=== PATIENT | female | born 1950 | race Caucasian/White ===

== ENCOUNTER → 2019-10-16 13:09 | Outpatient (BNVA) | payer MEDICARE, BC, SELFPAY | PROVIDERS: Visit Provider Nurse Practitioner Family | DX: M25.561 Pain in right knee (principal); M25.562 Pain in left knee | CPT/HCPCS: 73562 ==

== ENCOUNTER → 2019-11-20 17:51 | Outpatient (BNVA) | payer MEDICARE, BC, SELFPAY | PROVIDERS: Visit Provider Family Medicine | DX: R09.89 Other specified symptoms and signs involving the circulatory and respiratory systems (principal); B34.9 Viral infection, unspecified | CPT/HCPCS: 87804 ==

== ENCOUNTER 2021-01-13 13:11 | Outpatient (CLI) | payer MEDICARE, BC, SELFPAY ==
--- NOTE | 2021-01-13 13:26 | XR_ITS ---
WS: [id number] LUMBAR SPINE: 5 VIEWS TECHNIQUE: AP, lateral, and L5-S1 spot. Lateral views in neutral, flexion and extension. HISTORY: M54.5 - Low back pain COMPARISON: 07/13/2009 Moderate LEFT curvature lumbar spine with asymmetric disc space narrowing at L3-4 and L4-5. The scoli osis has moderately increased since 2008. Posterior alignment is normal. With flexion and extension t here is no instability. No fractures. Pedicles are all identified. Mild facet joint arthritis at L5-S1. Mild narrowing of the SI joints bilaterally similar to the prior study. XR/XR lumbar spine min 4V [id number] IMPRESSION: 1. Moderate progression in LEFT curvature scoliosis and asymmetric disc space narrowing. 2. No acute fractures. 3. No instability.
== END 2021-01-13 13:12 | disposition home or self-care (01) ==
PROVIDERS: Visit Provider Family Medicine
DX: M54.5 Low back pain (principal)
CPT/HCPCS: 72110

== ENCOUNTER 2021-01-29 16:11 | Outpatient (CLI) | payer MEDICARE, BC, SELFPAY ==
--- NOTE | 2021-01-29 16:45 | MR_ITS ---
WS: [id number] MRI LUMBAR SPINE NONCONTRAST TECHNIQUE: Sagittal T1, T2 and STIR imaging. Axial T1 and T2 imaging. CLINICAL INFORMATION: M54.5 - Low back pain COMPARISON: None. FINDINGS: Mild lumbar curve. No acute compression. Multilevel degenerative disc disease with disc space narrowi ng worse at L3-L5. No acute compression fractures. L1-L2: Mild annular bulging with a shallow right pericentral protrusion. Spinal canal and foramen are patent. Mild facet arthropathy. L2-L3: Mild annular bulging. Mild facet arthropathy. Spinal canal and foramen are patent. L3-L4: Slight retrolisthesis. Mild disc bulging with slight impingement traversing right L4 nerve ayo t. Mild right foraminal narrowing. Left foramen is patent. Moderate facet arthropathy. L4-L5: Mild disc bulging with osteophytic ridging. Slight impingement on the traversing left L5 nerve root. Mild left and no significant right foraminal narrowing. Mild/moderate facet arthropathy. L5-S1: Mild disc bulging with tiny shallow central protrusion. Slight effacement of ventral thecal sa c. Mild left and no significant right foraminal narrowing. Mild facet arthropathy. Visualized pelvic bony structures: Normal. Paravertebral soft tissues: Normal. MR/MR lumbar spine wo con* [id number] IMPRESSION: 1. Mild lumbar curve. No acute compression. No high-grade central canal stenos is. 2. Right subarticular disc protrusion L3-4 impinges the traversing right L4 ne rve root in the subarticular recess. This is progressed from previous. Mild rig ht L3-4 foraminal narrowing. 3. Disc bulging L4-5 with impingement traversing left L5 nerve root in the sub articular recess progressed from previous. 4. Mild left L5-S1 bony foraminal narrowing. 5. Shallow central protrusion L5-S1 with slight contact of the traversing S1 n erve roots. 6. Mild to moderate facet arthropathy L3-L5.
== END 2021-01-29 16:12 | disposition home or self-care (01) ==
LOC: RADSHAW 16:13
PROVIDERS: PCP Family Medicine; Visit Provider Family Medicine
DX: M54.5 Low back pain (principal); M51.36 Other intervertebral disc degeneration, lumbar region; M47.896 Other spondylosis, lumbar region; M47.816 Spondylosis without myelopathy or radiculopathy, lumbar region
CPT/HCPCS: 72148

== ENCOUNTER → 2021-02-22 10:10 | Outpatient (BNVA) | payer MEDICARE, BC, SELFPAY | PROVIDERS: PCP Family Medicine; Referring Provider Orthopaedic Surgery; Visit Provider Anesthesiology Pain Medicine | DX: G89.29 Other chronic pain (principal); M54.9 Dorsalgia, unspecified; M47.816 Spondylosis without myelopathy or radiculopathy, lumbar region; Z79.891 Long term (current) use of opiate analgesic | CPT/HCPCS: 99205 ==

== ENCOUNTER → 2021-03-10 14:03 | Outpatient (BNVA) | payer MEDICARE, BC, SELFPAY | PROVIDERS: PCP Family Medicine; Visit Provider Anesthesiology Pain Medicine | DX: G89.29 Other chronic pain (principal); M47.816 Spondylosis without myelopathy or radiculopathy, lumbar region; M54.9 Dorsalgia, unspecified | CPT/HCPCS: 64493; 64494; 64495; J3490 ==

== ENCOUNTER → 2021-03-24 11:00 | Outpatient (BNVA) | payer MEDICARE, BC, SELFPAY | PROVIDERS: PCP Family Medicine; Visit Provider Anesthesiology Pain Medicine | DX: G89.29 Other chronic pain (principal); M47.816 Spondylosis without myelopathy or radiculopathy, lumbar region; M79.605 Pain in left leg; M79.604 Pain in right leg | CPT/HCPCS: 99214 ==

== ENCOUNTER → 2021-04-07 13:19 | Outpatient (BNVA) | payer MEDICARE, BC, SELFPAY | PROVIDERS: PCP Family Medicine; Visit Provider Anesthesiology Pain Medicine | DX: G89.29 Other chronic pain (principal); M47.816 Spondylosis without myelopathy or radiculopathy, lumbar region | CPT/HCPCS: 64635; 64636 ==

== ENCOUNTER → 2021-04-21 14:11 | Outpatient (BNVA) | payer MEDICARE, BC, SELFPAY | PROVIDERS: PCP Family Medicine; Visit Provider Anesthesiology Pain Medicine | DX: G89.29 Other chronic pain (principal); M47.816 Spondylosis without myelopathy or radiculopathy, lumbar region; M79.604 Pain in right leg; M79.605 Pain in left leg | CPT/HCPCS: 99214 ==

== ENCOUNTER → 2021-05-04 12:44 | Outpatient (BNVA) | payer MEDICARE, BC, SELFPAY | PROVIDERS: PCP Family Medicine; Visit Provider Anesthesiology Pain Medicine | DX: G89.29 Other chronic pain (principal); M47.816 Spondylosis without myelopathy or radiculopathy, lumbar region | CPT/HCPCS: 99213 ==

== ENCOUNTER → 2021-06-03 12:45 | Outpatient (BNVA) | payer MEDICARE, BC, SELFPAY | PROVIDERS: PCP Family Medicine; Visit Provider Anesthesiology Pain Medicine | DX: G89.29 Other chronic pain (principal); M47.816 Spondylosis without myelopathy or radiculopathy, lumbar region; M79.601 Pain in right arm; M79.602 Pain in left arm | CPT/HCPCS: 99213 ==

== ENCOUNTER → 2021-06-30 09:26 | Outpatient (BNVA) | payer MEDICARE, BC, SELFPAY | PROVIDERS: PCP Family Medicine; Visit Provider Anesthesiology Pain Medicine | DX: G89.29 Other chronic pain (principal); M47.816 Spondylosis without myelopathy or radiculopathy, lumbar region; M79.604 Pain in right leg; M79.605 Pain in left leg | CPT/HCPCS: 99213 ==

== ENCOUNTER → 2021-08-31 13:51 | Outpatient (BNVA) | payer MEDICARE, BC, SELFPAY | PROVIDERS: PCP Family Medicine; Visit Provider Family Medicine | DX: M25.562 Pain in left knee (principal); M25.561 Pain in right knee | CPT/HCPCS: 73562 ==

== ENCOUNTER → 2021-09-22 10:56 | Outpatient (BNVA) | payer MEDICARE, BC, SELFPAY | PROVIDERS: PCP Family Medicine; Visit Provider Nurse Practitioner Family | DX: Z20.822 Contact with and (suspected) exposure to COVID-19 (principal); R68.89 Other general symptoms and signs | CPT/HCPCS: 87400; 87635 ==

== ENCOUNTER → 2021-10-26 09:19 | Outpatient (BNVA) | payer MEDICARE, BC, SELFPAY | PROVIDERS: PCP Family Medicine; Visit Provider Anesthesiology Pain Medicine | DX: G89.29 Other chronic pain (principal); M47.816 Spondylosis without myelopathy or radiculopathy, lumbar region; M79.604 Pain in right leg; M79.605 Pain in left leg | CPT/HCPCS: 99214 ==

== ENCOUNTER → 2022-01-20 09:03 | Outpatient (BNVA) | payer MEDICARE, BC, SELFPAY | PROVIDERS: PCP Family Medicine; Visit Provider Anesthesiology Pain Medicine | DX: G89.29 Other chronic pain (principal); M47.816 Spondylosis without myelopathy or radiculopathy, lumbar region; M79.604 Pain in right leg; M79.605 Pain in left leg | CPT/HCPCS: 99213 ==

== ENCOUNTER → 2022-04-28 08:50 | Outpatient (BNVA) | payer MEDICARE, BC, SELFPAY | PROVIDERS: PCP Family Medicine; Visit Provider Anesthesiology Pain Medicine | DX: M79.604 Pain in right leg (principal); M79.605 Pain in left leg; G89.29 Other chronic pain; M47.816 Spondylosis without myelopathy or radiculopathy, lumbar region | CPT/HCPCS: 99214 ==

== ENCOUNTER 2022-06-22 13:20 | Outpatient (CLI) | payer MEDICARE, BC, SELFPAY ==
--- NOTE | 2022-06-22 13:30 | XR_ITS ---
WS: [id number] DEXA (DUAL ENERGY X-RAY ABSORPTIOMETRY) Bone mineral density was performed using a [employer] machine. HISTORY: POST MENOPAUSAL COMPARISON: None available. Lumbar spine BMD (L1-L4): 1.440 g/cm2 T score: 2.2 Z score: 3.7 Total hip BMD: Left: 0.963 g/cm2. T score: -0.4 Z score: 1.1 Right: 0.908 g/cm2. T score: -0.8 Z score: 0.6 10 year probability of a major osteoporotic fracture is 29.3%. Marked LEFT curvature lumbar spine with bony sclerosis along the concave portion of the curve. XR/XR DEXA axial skeleton* [id number] IMPRESSION: NORMAL BONE MINERAL DENSITY based upon the WHO classification for females.
== END 2022-06-22 13:21 | disposition home or self-care (01) ==
LOC: RAD 13:20
PROVIDERS: PCP Family Medicine; Visit Provider Obstetrics & Gynecology
DX: Z78.0 Asymptomatic menopausal state (principal)
CPT/HCPCS: 77080

== ENCOUNTER → 2022-08-18 08:49 | Outpatient (BNVA) | payer MEDICARE, BC, SELFPAY | PROVIDERS: PCP Family Medicine; Visit Provider Anesthesiology Pain Medicine | DX: G89.29 Other chronic pain (principal); M47.816 Spondylosis without myelopathy or radiculopathy, lumbar region; M79.604 Pain in right leg; M79.605 Pain in left leg | CPT/HCPCS: 99213 ==

== ENCOUNTER → 2022-12-13 09:04 | Outpatient (BNVA) | payer MEDICARE, BC, SELFPAY | PROVIDERS: PCP Family Medicine; Visit Provider Anesthesiology Pain Medicine | DX: G89.29 Other chronic pain (principal); M47.816 Spondylosis without myelopathy or radiculopathy, lumbar region; M79.604 Pain in right leg; M79.605 Pain in left leg | CPT/HCPCS: 99213 ==

== ENCOUNTER → 2023-03-02 16:15 | Outpatient (BNVA) | payer MEDICARE, BC, SELFPAY | PROVIDERS: PCP Family Medicine; Visit Provider Family Medicine | DX: M25.552 Pain in left hip (principal) | CPT/HCPCS: 73502 ==

== ENCOUNTER → 2023-04-11 08:56 | Outpatient (BNVA) | payer MEDICARE, BC, SELFPAY | PROVIDERS: PCP Family Medicine; Visit Provider Anesthesiology Pain Medicine | DX: G89.29 Other chronic pain; M47.816 Spondylosis without myelopathy or radiculopathy, lumbar region; M25.552 Pain in left hip | CPT/HCPCS: 99213 ==

== ENCOUNTER → 2023-04-24 13:53 | Outpatient (BNVA) | payer MEDICARE, BC, SELFPAY | PROVIDERS: PCP Family Medicine; Visit Provider Anesthesiology Pain Medicine | DX: M16.11 Unilateral primary osteoarthritis, right hip (principal); M47.816 Spondylosis without myelopathy or radiculopathy, lumbar region | CPT/HCPCS: 20610; 77002; J1030; J3490 ==

== ENCOUNTER → 2023-05-09 08:46 | Outpatient (BNVA) | payer MEDICARE, BC, SELFPAY | PROVIDERS: PCP Family Medicine; Visit Provider Anesthesiology Pain Medicine | DX: M47.816 Spondylosis without myelopathy or radiculopathy, lumbar region; M25.552 Pain in left hip; M25.551 Pain in right hip | CPT/HCPCS: 99214 ==

== ENCOUNTER 2023-05-11 11:18 | Emergency (ER) | payer MEDICARE, BC, SELFPAY ==
[2023-05-11 11:21] VITALS: BMI 20.5
[2023-05-11 11:33] VITALS: BP 123/68; PULSE 81; RESP 16; TEMP 36.6; O2SAT 95
--- NOTE | 2023-05-11 11:33 | XR_ITS ---
WS: [id number] Exam: XR cervical spine 3V* [id number] Date/Time of Exam: 05/11/2023 11:33 AM Reason For Exam: fall pain No acute fracture or dislocation. There is straightening and reversal of the normal cervical lordosis . There is dextroscoliosis. There is degenerative disc change and spondylosis from C5-C7. Facet DJD a t all levels. Normal paraspinal soft tissues. The odontoid is intact. Upper thoracic scoliosis and ap ical pleural thickening. IMPRESSION: 1. No acute fracture or malalignment. 2. Degenerative changes, straightening, mild dextroscoliosis.
--- NOTE | 2023-05-11 11:33 | XR_ITS ---
WS: [id number] Exam: XR thoracic spine 2V [id number] Date/Time of Exam: 05/11/2023 11:33 AM Reason For Exam: fall pain No fracture or dislocation. Moderate dextroscoliosis. Mild spondylosis. Degenerative disc changes at all levels. Normal paraspinal soft tissues. IMPRESSION: 1. Degenerative changes and dextroscoliosis. No fracture or malalignment.
--- NOTE | 2023-05-11 11:34 | ED_ITS ---
HPI - Back Pain/Injury General: Chief Complaint: Back Pain/Injury Stated Complaint: neck and back pain post fall Time Seen by Provider: 05/11/23 11:28 History of Present Illness: Presents to the ER with complaints of neck and upper back pain. Patient took a fall this morning and fell backwards and now has complaints of neck and upper back pain. This fall was just prior to arrival. Patient did not have pain in these areas before. Patient stated her pain initially radiated down her arms but now is just in her neck and upper back region. Movement does exacerbate these. Staying very still does help these. Did not take any medicine prior to arrival. This is not work-related. Review of Systems General: Reports: 10 or more systems reviewed and unremarkable except in HPI and below PFSH ED PFSH: Social History Smoking and tobacco status: never smoked Second hand smoke exposure: No Alcohol intake: never Substance/Drug Use: never Lives independently: Yes Household members: spouse Housing: House Marital status: service: No Current occupational status: retired Current gender identity: Female Physical Exam Const: COMMON NORMALS: no acute distress, average body habitus, patient oriented x3, no limitations, healthy appearing, alert and well nourished HENMT: COMMON NORMALS: normocephalic, atraumatic, hearing grossly normal bilaterally, external ears normal, Normal external nose present and moist oral mucous membranes HEAD & SCALP: normocephalic and atraumatic NOSE: Normal external nose present EXTERNAL EAR: Yes external ears normal Eye: COMMON NORMALS: Equal, round and reactive pupils present, EOMs intact bilaterally, conjunctivae normal and no scleral icterus CONJUNCTIVA: Yes conjunctivae normal PUPIL: Yes Equal, round and reactive pupils present Neck/C-Spine: COMMON NORMALS: full ROM, no lymphadenopathy, supple, no meningeal signs and no JVD OTHER: Tender to paraspinal muscles bilaterally. No vertebral tenderness. Chest: COMMONS NORMALS: normal inspection of the chest and normal palpation of entire chest wall Resp: COMMON NORMALS: normal respiratory effort, No retractions, No use of accessory muscles and clear to auscultation bilaterally AUSCULTATION: clear to auscultation bilaterally Cardio: COMMON NORMALS: no JVD, regular rate, regular rhythm, S1 normal heart sound present, S2 normal heart sound present, No gallops present (Cardio), No clicks present (Cardio) and No murmurs present (Cardio) RATE: regular rate RHYTHM: regular rhythm HEART SOUNDS: S1 normal heart sound present and S2 normal heart sound present GI: COMMON NORMALS: Normal to inspection, nondistended, normoactive bowel sounds present, Soft to palpation, non-tender, No hepatosplenomegaly present and no masses PALPATION: Yes Soft to palpation and Yes No hepatosplenomegaly present Back/Pelvis: OTHER: Upper thoracic area tender to palpate paraspinal musculature. No vertebral tenderness. Neuro: COMMON NORMALS: patient oriented x3 SENSORIUM/ORIENTATION: Yes alert MENINGEAL SIGNS: Yes no meningeal signs Course Vital Signs: Vital signs: Vital Signs Temperature 97.9 F 05/11/23 11:33 Pulse Rate 81 05/11/23 11:33 Respiratory Rate 16 05/11/23 11:33 Blood Pressure 123/68 05/11/23 11:33 Pulse Oximetry 95 05/11/23 11:33 MDM - Back Pain/Injury Medical Decision Making Patient fell prior to arrival and presents with neck pain and upper back pain. Both these are mainly paraspinal musculature in nature and not vertebral tenderness. X-rays was obtained for both the cervical and thoracic spine. These x-rays were negative for acute fracture however they did show significant arthritis. She should continue to take her Celebrex that she has at home. As well as her tizanidine. Patient should follow-up with her PCP in approximately 7 days or sooner as needed. Differential Diagnosis Likely thoracic back pain; Unlikely lumbar radiculopathy, sciatica, strain of lumbar region, renal colic, pyelonephritis, AAA or discitis Medical Records I reviewed the patient's medical records. Labs I reviewed the patient's lab results. Discharge Plan Discharge Patient Disposition: Home Clinical Impression: Neck and shoulder pain Thoracic back pain Qualifiers: Chronicity: acute Back pain laterality: bilateral Qualified Code(s): M54.6 - Pain in thoracic spine Fall Qualifiers: Encounter type: initial encounter Qualified Code(s): W19.XXXA - Unspecified fall, initial encounter Condition: Stable Prescriptions: New Paxlovid 300 mg (150 mg x 2)-100 mg tablets,dose pack See Rx Instructions .ROUTE .COMPLEX Qty: 30 0RF Rx Instructions: take TWO 150 mg tablets of nirmatrelvir with ONE 100 mg tablet of ritonavir twice daily for 5 days No Action albuterol sulfate [ProAir HFA] 90 mcg/actuation HFA aerosol inhaler 2 puff inhalation QID PRN (Reason: shortness of breath or wheezing) Qty: 8.5 0RF nystatin 100,000 unit/mL suspension 2.5 ml PO TID Qty: 160 0RF Rx Instructions: swish and swallow Toviaz 8 mg tablet extended release 24 hr 8 mg PO DAILY estrogens-methyltestosterone 1.25-2.5 mg tablet 1 tab PO DAILY methylprednisolone [Medrol (Kurt)] 4 mg tablets,dose pack See Rx Instructions PO PER PKG DIR Qty: 21 0RF Rx Instructions: PO PER PKG DIR propranolol 40 mg tablet 20 mg PO BID Qty: 90 6RF celecoxib [Celebrex] 200 mg capsule 200 mg PO BID Qty: 60 1RF gabapentin 300 mg capsule 300 mg PO TID Qty: 90 3RF tizanidine 2 mg tablet 2 mg PO BID PRN (Reason: muscle spasticity) Qty: 60 3RF Discharge Orders: Discharge ED (Routine); Ordered 05/11/23 Ordered By: Bruce Valenzuela Referrals: Deb Muñiz MD [Primary Care Provider] - 1 week Patient Instructions: Thoracic Pain (ED), Acute Neck Pain (ED) Coding Level of Care Code ED [employer] Ac[employer] Program Manager for Tereza Mathew
== END 2023-05-11 13:22 | disposition home or self-care (01) ==
PROVIDERS: Emergency Provider Emergency Medicine; PCP Family Medicine
DX: M54.6 Pain in thoracic spine (principal); M54.2 Cervicalgia; M25.519 Pain in unspecified shoulder; W19.XXXA Unspecified fall, initial encounter
CPT/HCPCS: 72040; 72070; 99283

== ENCOUNTER → 2023-08-07 10:24 | Outpatient (BNVA) | payer MEDICARE, BC, SELFPAY | PROVIDERS: PCP Family Medicine; Visit Provider Anesthesiology Pain Medicine | DX: G89.29 Other chronic pain; M47.816 Spondylosis without myelopathy or radiculopathy, lumbar region; M51.26 Other intervertebral disc displacement, lumbar region; M48.061 Spinal stenosis, lumbar region without neurogenic claudication | CPT/HCPCS: 99214 ==

== ENCOUNTER → 2023-08-22 10:52 | Outpatient (BNVA) | payer MEDICARE, BC, SELFPAY | PROVIDERS: PCP Family Medicine; Visit Provider Anesthesiology Pain Medicine | DX: M79.18 Myalgia, other site (principal); M54.2 Cervicalgia; G89.29 Other chronic pain; M47.816 Spondylosis without myelopathy or radiculopathy, lumbar region | CPT/HCPCS: 20553; 99214; J1030; J3490 ==

== ENCOUNTER → 2023-11-02 10:25 | Outpatient (BNVA) | payer MEDICARE, BC, SELFPAY | PROVIDERS: PCP Family Medicine; Visit Provider Anesthesiology Pain Medicine | DX: G89.29 Other chronic pain; M47.816 Spondylosis without myelopathy or radiculopathy, lumbar region; M54.2 Cervicalgia | CPT/HCPCS: 99214 ==

== ENCOUNTER → 2023-12-12 09:54 | Outpatient (BNVA) | payer MEDICARE, BC, SELFPAY | PROVIDERS: PCP Family Medicine; Visit Provider Anesthesiology Pain Medicine | DX: M79.18 Myalgia, other site (principal); G89.29 Other chronic pain; M54.2 Cervicalgia; M47.816 Spondylosis without myelopathy or radiculopathy, lumbar region; M51.26 Other intervertebral disc displacement, lumbar region; M48.061 Spinal stenosis, lumbar region without neurogenic claudication | CPT/HCPCS: 20553; 99214 ==

== ENCOUNTER → 2024-01-09 14:10 | Outpatient (BNVA) | payer MEDICARE, BC, SELFPAY | PROVIDERS: PCP Family Medicine; Visit Provider Family Medicine | DX: R05.9 Cough, unspecified (principal); R50.9 Fever, unspecified | CPT/HCPCS: 87071; 87400; 87880 ==

== ENCOUNTER → 2024-02-13 08:57 | Outpatient (BNVA) | payer MEDICARE, BC, SELFPAY | PROVIDERS: PCP Family Medicine; Visit Provider Anesthesiology Pain Medicine | DX: M79.18 Myalgia, other site (principal); G89.29 Other chronic pain; M54.2 Cervicalgia; M47.816 Spondylosis without myelopathy or radiculopathy, lumbar region | CPT/HCPCS: 20553; 99214; J1010; J3490 ==

== ENCOUNTER → 2024-03-07 10:47 | Outpatient (BNVA) | payer MEDICARE, BC, SELFPAY | PROVIDERS: PCP Family Medicine; Visit Provider Family Medicine | DX: N39.0 Urinary tract infection, site not specified (principal) | CPT/HCPCS: 81003 ==

== ENCOUNTER 2024-03-14 21:24 | Observation (INO) | payer BC, MEDICARE, SELFPAY ==
[2024-03-14 21:28] VITALS: BP 184/109; PULSE 94; RESP 16; TEMP 36.6; O2SAT 98
[2024-03-14 21:32] VITALS: BP 188/87; PULSE 78; RESP 16; O2SAT 96
--- NOTE | 2024-03-14 21:39 | ED_ITS ---
HPI - Neuro Symptoms/Deficit 2 General: Chief Complaint: Neuro Symptoms/Deficit Stated Complaint: Dizziness,Left side Numbness Time Seen by Provider: 03/14/24 21:34 History of Present Illness: Patient presents to the ER with complaints of headache off and on since 3 AM this morning, numbness and tingling in her left fourth and fifth digit in the left side of her mouth upper and lower lips intermittently throughout the day. Patient also has had intermittent dizziness. Patient has taken several doses of Excedrin which has helped her headache and her numbness is decreased but she is not quite back to normal yet. Patient has had 2 or 3 episodes like this approximately 5 weeks ago but did not seek treatment.Patient has no history of CVA, TIA, CAD, Patient is on no anticoagulation., Patient by her PCP approximately week ago for UTI and started on Cipro and finished 5 days worth of Cipro and is still having UTI type symptoms. Review of Systems 2 General: Reports: 10 or more systems reviewed and unremarkable except in HPI and below PFSH ED 2 PFSH: Social History Smoking and tobacco/nicotine status: never used tobacco/nicotine Second hand smoke exposure: No Alcohol intake: never Substance/Drug Use: never Lives independently: Yes Household members: spouse Housing: House Marital status: service: No Current occupational status: retired Current gender identity: Female NIH stroke score 2 NIHSS: Level Of Consciousness - 1a: 0 Level Of Consciousness Questions - 1b: Both Correct Level Of Consciousness Commands - 1c: Both Correct Best Gaze - 2: Normal Visual Benitez - 3: No Visual Loss Facial Palsy - 4: N ormal Motor Arm Right - 5: No Drift Motor Arm Left - 5: No Drift Motor Leg Right - 6: No Drift Motor Leg Left - 6: No Drift Limb Ataxia - 7: A bsent Sensory - 8: Normal Best Language - 9: No Aphasia Dysarthia - 10: Normal Extinction And Inattention - 11: 0 Score: Total Score: 0 Physical Exam 2 Const: COMMON NORMALS: no acute distress, average body habitus, patient oriented x3, no limitations, healthy appearing, alert and well nourished HENMT: COMMON NORMALS: normocephalic, atraumatic, hearing grossly normal bilaterally, external ears normal, Normal external nose present and moist oral mucous membranes HEAD & SCALP: normocephalic and atraumatic NOSE: Normal external nose present EXTERNAL EAR: Yes external ears normal Eye: COMMON NORMALS: Equal, round and reactive pupils present, EOMs intact bilaterally, conjunctivae normal and no scleral icterus CONJUNCTIVA: Yes conjunctivae normal PUPIL: Yes Equal, round and reactive pupils present Neck/C-Spine: COMMON NORMALS: full ROM, no lymphadenopathy, supple, no meningeal signs, no JVD and Thyroid normal THYROID: Thyroid normal Chest: COMMONS NORMALS: normal inspection of the chest and normal palpation of entire chest wall Resp: COMMON NORMALS: normal respiratory effort, No retractions, No use of accessory muscles and clear to auscultation bilaterally AUSCULTATION: clear to auscultation bilaterally Cardio: COMMON NORMALS: no JVD, regular rate, regular rhythm, S1 normal heart sound present, S2 normal heart sound present, No gallops present (Cardio), No clicks present (Cardio), No murmurs present (Cardio) and No rub (Cardio) R ATE: regular rate RHYTHM: regular rhythm HEART SOUNDS: S1 normal heart sound present and S2 normal heart sound present GI: COMMON NORMALS: Normal to inspection, nondistended, normoactive bowel sounds present, Soft to palpation, non-tender, No hepatosplenomegaly present and no masses PALPATION: Yes Soft to palpation and Yes No hepatosplenomegaly present Neuro: COMMON NORMALS: patient oriented x3 SENSORIUM/ORIENTATION: Yes alert MENINGEAL SIGNS: Yes no meningeal signs Course 2 Vital Signs: Vital signs: Vital Signs Temperature 97.9 F 03/14/24 21:28 Pulse Rate 80 03/14/24 23:17 Respiratory Rate 16 03/14/24 23:17 Blood Pressure 158/90 03/14/24 23:17 Pulse Oximetry 98 03/14/24 23:17 Oxygen Delivery Me thod Room Air 03/14/24 23:17 MDM - Neuro Symptoms/Deficit Medical Decision Making Patient had lab work, chest x-ray, head CT, CT of the cervical spine, head neck CTA, serial troponins, urinalysis all of which did not show any acute cause of the patient's symptomatology. Patient's urine was possibly slightly contaminated with 5-10 epithelials however had 2+ blood 1+ ketones and 1+ bacteria, is thought patient may be having TIA/paresthesias and orthostatics. Dr. De Luna was consulted who agreed to place patient in the hospital for further evaluation and treatment. Medical Records I reviewed the patient's medical records. Lab Data I reviewed the patient's lab results. 03/14/24 22:14 03/14/24 22:14 Radiology Impressions Chest X-Ray 03/14/24 21:40 IMPRESSION: No acute cardiopulmonary abnormality. Head CT 03/14/24 21:40 IMPRESSION: No evidence of acute intracranial hemorrhage, mass effect, or edema. Cervical Spine CT 03/15/24 00:47 IMPRESSION: Advanced degenerative disc disease at C5-C6 and to a lesser degree at C6-C7. No spinal canal or neural foraminal stenosis appreciated, but there is limited CT sensitivity for soft disc pathology. Consideration could be given to MR for further investigation. Head/Neck CTA 03/15/24 00:47 IMPRESSION: No evidence of acute large vessel occlusion, vascular malformation, aneurysm, or significant intracranial atherosclerosis. Posteroinferior cerebellar arteries appear normal bilaterally. Normal symmetric internal auditory canals. IMPRESSION: 1. There is no visible plaque at either carotid bifurcation. Widely patent carotid and vertebral arteries in the neck. 2. Right TMJ osteoarthritis. REFERENCES: NASCET CRITERIA. The degree of stenosis in the cervical segment of the internal carotid artery is based on NASCET criteria. Normal is no stenosis. Mild is less than 50% stenosis. Moderate is 50-69% stenosis. Severe is 70% to 99% stenosis. Total occlusion is no detectable patent lumen. Laboratory Results WBC 6.88 10^3/uL (3.29-11.43) 03/14/24 22:14 RBC 4.68 10^6/uL (3.85-5.65) 03/14/24 22:14 Hgb 14.40 g/dL (11.27-16.99) 03/14/24 22:14 Hct 43.6 % (36-47) 03/14/24 22:14 MCV 93.2 fl (85-98) 03/14/24 22:14 MCH 30.8 pg (27-33) 03/14/24 22:14 MCHC 33.0 g/dL (30-55) 03/14/24 22:14 RDW 13.2 % (12.1-15.1) 03/14/24 22:14 Plt Count 237 10^3/cmm (157-399) 03/14/24 22:14 MPV 10.9 fL (7.4-10.4) H 03/14/24 22:14 Neut % (Auto) 62.1 % 03/14/24 22:14 Lymph % (Auto) 26.3 % 03/14/24 22:14 [place] % (Auto) 9.3 % 03/14/24 22:14 Eos % (Auto) 1.6 % 03/14/24 22:14 Baso % (Auto) 0.6 % 03/14/24 22:14 Neut # (Auto) 4.27 10^3/uL (1.8-7.7) 03/14/24 22:14 Lymph # (Auto) 1.8 10^3/uL (0.8-4.8) 03/14/24 22:14 [place] # (Auto) 0.6 10^3/uL (0.2-0.9) 03/14/24 22:14 Eos # (Auto) 0.1 10^3/uL (0.0-0.8) 03/14/24 22:14 Baso # (Auto) 0.0 10^3/uL (0.0-0.1) 03/14/24 22:14 Nucleated RBC % (auto) 0 % 03/14/24 22:14 Nucleated RBCs # 0.0 /100WBC 03/14/24 22:14 PT 14.20 SECONDS (12.1-14.9) 03/14/24 22:14 INR 1.06 (0.8-1.2) 03/14/24 22:14 Sodium 136 mmol/L (136-145) 03/14/24 22:14 Potassium 3.4 mmol/L (3.5-5.1) L 03/14/24 22:14 Chloride 97 mmol/L (98-107) L 03/14/24 22:14 Carbon Dioxide 26 mmol/L (22-29) 03/14/24 22:14 Anion Gap 16.4 (5-19) 03/14/24 22:14 BUN 16 mg/dL (8-23) 03/14/24 22:14 Creatinine 1.0 mg/dL (0.5-0.9) H 03/14/24 22:14 GFR Calculation Not Reportable 03/14/24 22:14 Glucose 115 mg/dL (65-115) 03/14/24 22:14 Calculated Osmolality 284 mOsm/kg (285-295) L 03/14/24 22:14 Calcium 9.3 mg/dL (8.5-10.5) 03/14/24 22:14 Magnesium 1.9 mg/dL (1.7-2.3) 03/14/24 22:14 Total Bilirubin 0.5 mg/dL (0.15-1.2) 03/14/24 22:14 AST 18 U/L (0-32) 03/14/24 22:14 ALT 11 U/L (0-33) 03/14/24 22:14 Alkaline Phosphatase 58 U/L (35-105) 03/14/24 22:14 Troponin T Baseline 9 ng/L (0-10) 03/14/24 22:14 Troponin T 120 Minute 10.35 ng/L (0-10) H 03/15/24 00:19 Delta Troponin T 1.35 ABS# (0-10) 03/15/24 00:19 C-Reactive Protein 3.1 mg/L (0.0-4.9) 03/14/24 22:14 Total Protein 7.0 g/dL (6.6-8.7) 03/14/24 22:14 Albumin 3.9 g/dL (3.5-5.2) 03/14/24 22:14 Globulin 3.1 g/dL (1.3-4.6) 03/14/24 22:14 TSH 1.44 uIU/mL (0.27-4.20) 03/14/24 22:14 Urine Color Yellow (Yellow) 03/14/24 23:13 Urine Appearance Clear (CLEAR) 03/14/24 23:13 Urine pH 8 (5-7) H 03/14/24 23:13 Ur Specific [place] 1.015 (1.005-1.030) 03/14/24 23:13 Urine Protein Neg (Negative) 03/14/24 23:13 Urine Glucose (UA) Norm (Normal) 03/14/24 23:13 Urine Ketones 1+ (Negative) H 03/14/24 23:13 Urine Blood 2+ (Negative) H 03/14/24 23:13 Urine Nitrate Negative (Negative) 03/14/24 23:13 Urine Bilirubin Neg (Negative) 03/14/24 23:13 Urine Urobilinogen Neg mg/dL (Negative) 03/14/24 23:13 Ur Leukocyte Esterase Negative (Negative) 03/14/24 23:13 Urine RBC 5-10 /hpf (0-2) H 03/14/24 23:13 Urine WBC 0-4 /hpf (0-5) H 03/14/24 23:13 Ur Squamous Epith Cells 5-10 /hpf (0-5) H 03/14/24 23:13 Amorphous Sediment 1+ /hpf 03/14/24 23:13 Urine Bacteria 1+ /hpf (NONE) H 03/14/24 23:13 Urine Mucus Trace /hpf 03/14/24 23:13 All radiology interpretation(s) finalized by discharge Discharge Plan Discharge Patient Disposition: Placed in Observation Clinical Impression: Numbness and tingling, Brain TIA, Dizziness Coding Level of Care Code ED Plastic Molding Operator for Tereza Mathew
--- NOTE | 2024-03-14 21:40 | CTR_ITS ---
PROCEDURE INFORMATION: Exam: CT Head Without Contrast Exam date and time: 03/14/2024 9:52 PM Age: 73 years old Clinical indication: Pain; Dizziness and weakness, extremity; Headache; Patient HX: C/O [place] and dizziness with left upper extremity numbness. ; Additional info: Headache, left arm numbness, lips numb off and on TECHNIQUE: Imaging protocol: Computed tomography of the head without contrast. Radiation optimization: All CT scans at this facility use at least one of these dose optimization techniques: automated exposure control; mA and/or kV adjustment per patient size (includes targeted exams where dose is matched to clinical indication); or iterative reconstruction. COMPARISON: CR XR cervical spine 3V* [id number] 05/11/2023 11:49 AM RADIATION DOSE METRICS: Total DLP (mGy-cm): 1059.7 FINDINGS: Brain: No hemorrhage. Unremarkable white matter. No mass effect. Preserved lee-white interfaces. Cerebral ventricles: No ventriculomegaly. Paranasal sinuses: Visualized sinuses are unremarkable. No fluid levels. Mastoid air cells: Visualized mastoid air cells are well aerated. Bones: Unremarkable. No acute fracture. Soft tissues: Unremarkable. CT/CT head wo con* [id number] IMPRESSION: No evidence of acute intracranial hemorrhage, mass effect, or edema.
--- NOTE | 2024-03-14 21:40 | XRR_ITS ---
PROCEDURE INFORMATION: Exam: XR Chest Exam date and time: 03/14/2024 9:46 PM Age: 73 years old Clinical indication: Other: Dizzy, weakness; Additional info: Left arm weakness, HTN, TECHNIQUE: Imaging protocol: Radiologic exam of the chest. Views: 1 view. COMPARISON: CR XR cervical spine 3V* [id number] 05/11/2023 11:49 AM FINDINGS: Lungs: Clear, symmetrically inflated lungs. Pleural spaces: No pleural effusion. No pneumothorax. Heart/Mediastinum: Cardiac silhouette is normal in size for technique. Bones/joints: Prominent thoracic dextroscoliosis. XR/XR chest 1V portable [id number] IMPRESSION: No acute cardiopulmonary abnormality.
[2024-03-14 22:22] LABS: Basophils % 0.6 %; Eosinophils # 0.1 10^3/uL (0.0-0.8); Eosinophils % 1.6 %; Hematocrit 43.6 % (36-47); Lymphocytes # 1.8 10^3/uL (0.8-4.8); Lymphocytes % 26.3 %; Mean Corpuscular Hemoglobin 30.8 pg (27-33); Mean Corpuscular Volume 93.2 fl (85-98); Mean Platelet Volume 10.9 fL (7.4-10.4); Monocytes # 0.6 10^3/uL (0.2-0.9); Monocytes % 9.3 %; Neutrophils # 4.27 10^3/uL (1.8-7.7); Neutrophils % 62.1 %; Nucleated Red Blood Cells % 0 %; Platelet Count 237 10^3/cmm (157-399); Red Blood Count 4.68 10^6/uL (3.85-5.65); Red Cell Distribution Width 13.2 % (12.1-15.1); White Blood Count 6.88 10^3/uL (3.29-11.43)
[2024-03-14 22:40] LABS: Troponin(5th) Baseline 9 ng/L (0-10)
[2024-03-14 22:56] LABS: INR 1.06 (0.8-1.2)
[2024-03-14 23:17] VITALS: BP 158/90; PULSE 80; RESP 16; O2SAT 98
[2024-03-14 23:18] LABS: Alanine Aminotransferase 11 U/L (0-33); Albumin Level 3.9 g/dL (3.5-5.2); Alkaline Phosphatase 58 U/L (35-105); Anion Gap 16.4 (5-19); Aspartate Amino Transferase 18 U/L (0-32); Blood Urea Nitrogen 16 mg/dL (8-23); C Reactive Protein 3.1 mg/L (0.0-4.9); Calcium 9.3 mg/dL (8.5-10.5); Carbon Dioxide 26 mmol/L (22-29); Chloride 97 mmol/L (98-107); Creatinine Clr Calc Pharmacy 50.8481; Globulin 3.1 g/dL (1.3-4.6); Glucose 115 mg/dL (65-115); Magnesium 1.9 mg/dL (1.7-2.3); Osmolality Calculated 284 mOsm/kg (285-295); Potassium 3.4 mmol/L (3.5-5.1); Sodium 136 mmol/L (136-145); Thyroid Stimulating Hormone 1.44 uIU/mL (0.27-4.20); Total Bilirubin 0.5 mg/dL (0.15-1.2)
[2024-03-14 23:40] LABS: Add Urine Microscopic? YES; Amorphous Sediment Urine 1+ /hpf; Bacteria Urine 1+ /hpf; Bilirubin Urine Neg (Negative); Blood Urine 2+ (Negative); Glucose Urine UA Norm (Normal); Ketones Urine 1+ (Negative); Leukocyte Esterase Urine Negative (Negative); Mucus Urine TRACE /hpf; Nitrate Urine Negative (Negative); Protein Urine Neg (Negative); Specific Gravity, Urine 1.015 (1.005-1.030); Urine Appearance Clear (CLEAR); Urine Color Yellow (Yellow); Urobilinogen Urine Neg (Negative); WBC Urine 0-4 /hpf (0-5); pH Urine 8 (5-7)
[2024-03-15] VITALS (11 sets, daily range): BP systolic 137–179; BP diastolic 72–93; PULSE 74–96; RESP 12–16; TEMP 36.5–36.9; O2SAT 92–99
[2024-03-15 00:41] LABS: Troponin 5 2HR 10.35 ng/L (0-10); Troponin 5 2HR Delta 1.35 ABS# (0-10)
--- NOTE | 2024-03-15 00:47 | CTR_ITS ---
PROCEDURE INFORMATION: Exam: CT Cervical Spine Without Contrast Exam date and time: 03/15/2024 1:03 AM Age: 73 years old Clinical indication: Numbness; Prior surgery; Surgery date: 6+ months; Surgery type: Dental; Patient HX: Persistent dizziness with left upper extremity parasthesia. Tingling of 4th and 5th digits. ; Additional info: Parasthesia, HX oa spine TECHNIQUE: Imaging protocol: Computed tomography of the cervical spine without contrast. Radiation optimization: All CT scans at this facility use at least one of these dose optimization techniques: automated exposure control; mA and/or kV adjustment per patient size (includes targeted exams where dose is matched to clinical indication); or iterative reconstruction. COMPARISON: CR XR cervical spine 3V* [id number] 05/11/2023 11:49 AM RADIATION DOSE METRICS: Total DLP (mGy-cm): 285.87 FINDINGS: Bones: No evidence of acute cervical spine fracture. There is loss of the normal cervical lordosis with moderate cervical kyphosis. There is degenerative change throughout the cervical spine which is most severe C5-C6 and C6-C7. At C5-C6, there is severe discogenic sclerosis. No significant spinal canal or neural foraminal stenosis demonstrated in the cervical spine, but soft disc pathology can be underestimated on CT. Pharynx: Normal tonsillar pillars. Normal fossa of [place]. Larynx: Normal epiglottis. Symmetric vocal folds. Lungs: Lung apices were not included in the scan range. Thyroid: Homogeneous thyroid. Soft tissues: Unremarkable. CT/CT cervical spin wo con* [id number] IMPRESSION: Advanced degenerative disc disease at C5-C6 and to a lesser degree at C6-C7. No spinal canal or neural foraminal stenosis appreciated, but there is limited CT sensitivity for soft disc pathology. Consideration could be given to MR for further investigation.
--- NOTE | 2024-03-15 00:47 | CTR_ITS ---
PROCEDURE INFORMATION: Exam: CTA Head With Contrast, Arteriography Exam date and time: 03/15/2024 1:07 AM Age: 73 years old Clinical indication: Dizziness and giddiness and numbness; Prior surgery; Surgery date: 6+ months; Surgery type: Dental; Patient HX: Persistent dizziness with left upper extremity parasthesia. Tingling of 4th and 5th digits. ; Additional info: Headache numbnes tingling left mouth and left 4,5 fingers TECHNIQUE: Imaging protocol: Computed tomographic angiography of the head with contrast. Exam focused on the arteries. 3D rendering (Not supervised by radiologist): MIP and/or 3D reconstructed images were created by the technologist. Radiation optimization: All CT scans at this facility use at least one of these dose optimization techniques: automated exposure control; mA and/or kV adjustment per patient size (includes targeted exams where dose is matched to clinical indication); or iterative reconstruction. Contrast material: OMNI 350; Contrast volume: 100 ml; Contrast route: INTRAVENOUS (IV); COMPARISON: CT head wo con* [id number] 03/14/2024 9:52 PM RADIATION DOSE METRICS: Total DLP (mGy-cm): 415.42 FINDINGS: ANTERIOR CIRCULATION: Right internal carotid artery: Intracranial segment is patent with no significant stenosis. No aneurysm. Right middle cerebral artery: No occlusion or significant stenosis. No aneurysm. Right anterior cerebral artery: Hypoplastic right A1 segment. Left internal carotid artery: Intracranial segment is patent with no significant stenosis. No aneurysm. Left middle cerebral artery: No occlusion or significant stenosis. No aneurysm. Left anterior cerebral artery: No occlusion or significant stenosis. No aneurysm. POSTERIOR CIRCULATION: Right vertebral artery: No occlusion or significant stenosis. No aneurysm. Normal posteroinferior cerebellar artery. Left vertebral artery: No occlusion or significant stenosis. No aneurysm. Normal posteroinferior cerebellar artery. Basilar artery: No occlusion or significant stenosis. No aneurysm. Right posterior cerebral artery: No occlusion or significant stenosis. No aneurysm. Left posterior cerebral artery: No occlusion or significant stenosis. No aneurysm. Veins: Patent venous dural sinuses and tributaries. Brain: No definite mass, mass effect, or midline shift. Cerebral ventricles: No ventriculomegaly. Bones/joints: Normal symmetric internal auditory canals. No acute fracture. Soft tissues: Unremarkable. PROCEDURE INFORMATION: Exam: CTA Neck With Contrast Exam date and time: 03/15/2024 1:07 AM Age: 73 years old Clinical indication: Dizziness and giddiness and numbness; Prior surgery; Surgery date: 6+ months; Surgery type: Dental; Patient HX: Persistent dizziness with left upper extremity parasthesia. Tingling of 4th and 5th digits. ; Additional info: Headache numbnes tingling left mouth and left 4,5 fingers TECHNIQUE: Imaging protocol: Computed tomographic angiography of the neck with contrast. Exam focused on the cervical segments of the vasculature. 3D rendering (Not supervised by radiologist): MIP and/or 3D reconstructed images were created by the technologist. Radiation optimization: All CT scans at this facility use at least one of these dose optimization techniques: automated exposure control; mA and/or kV adjustment per patient size (includes targeted exams where dose is matched to clinical indication); or iterative reconstruction. Contrast material: OMNI 350; Contrast volume: 100 ml; Contrast route: INTRAVENOUS (IV); COMPARISON: CT cervical spin wo con* [id number] 03/15/2024 1:03 AM RADIATION DOSE METRICS: Total DLP (mGy-cm): 415.42 FINDINGS: Right common carotid artery: No stenosis. No dissection or occlusion. Right internal carotid artery: No stenosis of the extracranial segment. No dissection or occlusion. Right external carotid artery: No occlusion or stenosis of the origin. Left common carotid artery: No stenosis. No dissection or occlusion. Left internal carotid artery: No stenosis of the extracranial segment. No dissection or occlusion. Left external carotid artery: No occlusion or stenosis of the origin. Right vertebral artery: No stenosis. No dissection or occlusion. Left vertebral artery: No stenosis. No dissection or occlusion. Thyroid: Homogeneous thyroid. Soft tissues: Normal. No significant soft tissue swelling. 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 There is diffuse degenerative disc disease throughout the cervical spine without spinal canal or neural foraminal stenosis. Lungs: Mild bronchiectasis at the lung apices. Clear lung parenchyma. CT/CT angio headneck* [id number] IMPRESSION: No evidence of acute large vessel occlusion, vascular malformation, aneurysm, or significant intracranial atherosclerosis. Posteroinferior cerebellar arteries appear normal bilaterally. Normal symmetric internal auditory canals. IMPRESSION: 1. There is no visible plaque at either carotid bifurcation. Widely patent carotid and vertebral arteries in the neck. 2. Right TMJ osteoarthritis. REFERENCES: NASCET CRITERIA. The degree of stenosis in the cervical segment of the internal carotid artery is based on NASCET criteria. Normal is no stenosis. Mild is less than 50% stenosis. Moderate is 50-69% stenosis. Severe is 70% to 99% stenosis. Total occlusion is no detectable patent lumen.
[2024-03-15] MEDS: iohexol 350 mg/mL 500 mL Btl (per mL) IV (01:16)
--- NOTE | 2024-03-15 01:47 | P.HP_ITS ---
Providers/Chief Complaint 2 Primary Care Provider: Deb Muñiz MD Chief Complaint: Dizziness,Left side Numbness History of Present Illness Rosey Saravia is a 73 year old female With past medical history of bladder prolapse, chronic back pain,, migraines, chronic headaches who presented to the hospital today for complaint of numbness and tingling in her left hand which later extended up to her shoulder including the bottom left half of her face. She states she woke up around 3:30 AM with a bad headache took Excedrin and went back to bed and got up at 730 and by the time she went to breakfast table she started experiencing dizziness and all of the above symptoms. She stood up and felt dizzy by the time she got to the ER her symptoms resolved however when seen right now she says every time she stands up she feels dizzy and same symptoms start recurring however when she lays down they go away. At times she says she has no symptoms and then she says she might have some. She also states about 5 weeks ago similar episode happened and then she went and saw her chiropractor and by that time symptoms had resolved on their own once again. She has no known history of heart disease diabetes hypertension high cholesterol which she is aware of. She says she has been told that she has a pinched nerve in her neck however has not had any imaging done. At this time she denies nausea vomiting diarrhea abdominal pain chest pain shortness of breath, constipation or any other symptoms. She is still experiencing mild numbness in the bottom left half of her face. Son in law at bedside. Medications/Allergies Home Medications Medication Instructions Recorded Confirmed Last Taken Type esterified 1 tab PO DAILY 10/16/19 03/07/24 Unknown History estrogens-methyltestosterone 1.25 mg-2.5 mg tablet fesoterodine 8 mg tablet,extended 8 mg PO DAILY 10/16/19 03/07/24 Unknown History release 24 hr (Toviaz) albuterol sulfate 90 mcg/actuation 2 puff inhalation QID PRN 10/01/21 03/07/24 Unknown Rx aerosol inhaler (ProAir HFA) shortness of breath or wheezing #8.5 grams nystatin 100,000 unit/mL oral 2.5 ml PO TID #160 mL 10/27/21 03/07/24 Unknown Rx suspension celecoxib 200 mg capsule See Rx Instructions .Route 05/22/23 03/07/24 Unknown Rx .COMPLEX #60 caps ibuprofen 800 mg tablet 800 mg PO Q8H #30 tabs 05/25/23 03/07/24 Unknown Rx propranolol 40 mg tablet 20 mg (1/2 x 40 mg) PO BID #90 tabs 05/25/23 03/07/24 Unknown Rx promethazine-DM 6.25 mg-15 mg/5 mL 5 ml PO Q6H PRN cough #160 mL 01/09/24 03/07/24 Unknown Rx oral syrup gabapentin 300 mg capsule 300 mg PO TID pain #90 caps 01/16/24 03/07/24 Unknown Rx baclofen 10 mg tablet 10 mg PO BID PRN spasm #60 tabs 02/13/24 03/07/24 Unknown Rx ciprofloxacin HCl 500 mg tablet 500 mg PO BID #10 tabs 03/07/24 03/07/24 Unknown Rx (Cipro) Allergies Allergy/AdvReac Type Severity Reaction Status Date / Time Sulfa (Sulfonamide Allergy Unknown Unknown Verified 03/14/24 21:32 Antibiotics) topiramate [From Topamax] Allergy Unknown Unknown Verified 03/14/24 21:32 codeine Allergy ALGY-Anaphy Verified 03/14/24 21:32 laxis Corticosteroids Allergy rash, fever Verified 03/14/24 21:32 (Glucocorticoids) PFSH Acute 2 PFSH: Social History Smoking and tobacco/nicotine status: never used tobacco/nicotine Second hand smoke exposure: No Alcohol intake: never Substance/Drug Use: never Lives independently: Yes Household members: spouse Housing: House Marital status: service: No Current occupational status: retired Current gender identity: Female Vitals/I&O/Wt Last Vital Signs Temp 97.9 F 03/14/24 21:28 Pulse 80 03/14/24 23:17 Resp 16 03/14/24 23:17 BP 158/90 03/14/24 23:17 Pulse Ox 98 03/14/24 23:17 O2 Del Method Room Air 03/14/24 23:17 Weight last 48 hrs Weight 64.864 kg Physical Exam 2 Narrative: General: Alert oriented x3, patient seen laying in bed HEENT: Normocephalic, atraumatic, EOMI, breathing normally on room air, no acute respiratory distress Cardio: Regular rate rhythm, normal S1-S2 Respiratory: Good bilateral air entry, no wheezes no rhonchi appreciated GI: Abdomen soft, nontender,bowel sounds + Extremities: No edema bilateral lower extremities Neuro: No focal deficits at this time, seen laying in bed, sensation and strength intact. cn intact, no cerebellar signs. Data 03/14/24 22:14 03/14/24 22:14 A&P Assessment and plan (1) Brain TIA: (2) Numbness and tingling: (3) Dizziness: (4) Migraine: (5) Headache: Plan #Possible TIA? #Possible cervical disease #Hx of chronic back pain #Migraines - Patient may be having TIAs vs some symptoms may be explained by cervical disc disease vs complex migraine as her headache has not resolved yet. - She has no gait disturbances however does complain of dizziness. - Is not experiencing symptoms at this time. NIH 0. - Start aspirin, plavix (21 days), atorvastatin - Check echo - Check MRI in AM - Place on telemetry to r/o underlying afib - Check lipid panel, hba1c - Check CT cervical spine. - Check orthostatic vitals - First two trops complete, delta 1.35. - UA positive for 0.4 WBC, 1+ bacteria, was recently diagnosed with UTI and states is still having symptoms, has completed ciprofloxacin. Will order ceftriaxone and check urine culture. - COntinue home medications - Allow permissive hypertension - Complete med rec Full code DVT prophylaxis: Heparin SQ twice daily Attestations 2 Medical Necessity Statement*: < 48 hour stay for workup and management of patient's symptoms. Diagnoses Brain TIA G45.9 Numbness and tingling R20.0; R20.2 Dizziness R42 Migraine G43.909 Headache R51.9
--- NOTE | 2024-03-15 01:52 | USCV_ITS ---
Rosey Saravia Age: 73 Gender: F : 1950 Exam Date: 03/15/2024 02:02 Ordering Phys: Gayle De Luna MD Technologist: KEELY [place] [facility] [place]: stroke BP: 184 / 109 HR: 84 Rhythm: Sinus Technical Quality: Adequate MEASUREMENTS (Male / Female) Normal Values 2D ECHO LV Diastolic Diameter PLAX 3.1 cm 4.2 - 5.9 / 3.9 - 5.3 cm IVS Diastolic Thickness 1.1 cm 0.6 - 1.0 / 0.6 - 0.9 cm IVS Systolic Thickness 1.3 cm LVPW Diastolic Thickness 1.2 cm 0.6 - 1.0 / 0.6 - 0.9 cm LVPW Systolic Thickness 1.3 cm LVOT Diameter 1.7 cm LV Ejection Fraction 2D Teich 58.5 % LV Ejection Fraction MOD 2C 57.0 % LV Ejection Fraction 2C AL 56.2 % LA Diameter 2.0 cm Aorta at Sinotubular Diameter 2.4 cm IVC Diameter 1.0 cm M-MODE LA Ao Ratio MM 0.8 AV Cusp Separation MM 1.7 cm DOPPLER AV Peak Velocity 121.0 cm/s LVOT Peak Velocity 116.0 cm/s AV Area Cont Eq vti 2.3 cm squared AV Area Cont Eq pk 2.2 cm squared MV Peak Velocity 107.0 cm/s MV Area PHT 4.4 cm squared Mitral E to A Ratio 0.7 TR Peak Velocity 199.0 cm/s TR Peak Gradient 15.8 mmHg TV Peak E Velocity 55.0 cm/s Right Atrial Pressure 3.0 mmHg Pulmonary Artery Systolic Pressu 18.8 mmHg PV Peak Velocity 131.0 cm/s FINDINGS Left Ventricle Left ventricle is normal in size. LV systolic function is normal with EF of 55 to 60%. No regional wall motion abnormalities are seen. Grade 1 diastolic dysfunction. Right Ventricle Normal in size and function Right Atrium Normal in size Left Atrium Normal in size Mitral Valve Structurally normal mitral valve. Mild mitral regurgitation. Aortic Valve Structurally normal aortic valve. No significant stenosis or regurgitation. Tricuspid Valve Mild tricuspid regurgitation. Insufficient TR jet to calculate RVSP. Pulmonic Valve Not well visualized Pericardium Normal Aorta Normal in size IVC Appears to be normal CONCLUSIONS LV systolic function is normal with EF of 55-60% Grade 1 diastolic dysfunction Mild mitral regurgitation Mild tricuspid regurgitation No comparison studies are available. River Ware MD (Electronically Signed) Final Date: 15 March 2024 17:36 S
--- NOTE | 2024-03-15 01:54 | MR_ITS ---
WS: [id number] MRI HEAD WITHOUT CONTRAST TECHNIQUE: Sagittal T1, T2 axial, T2 axial FLAIR, axial and coronal T1 images, axial susceptibility w eighted imaging, axial diffusion weighted images, and coronal T2 images were obtained. CLINICAL INFORMATION: r/o stroke COMPARISON: CT 03/14/2024 FINDINGS: No evidence of restricted diffusion to suggest acute ischemia. Mild small vessel changes. Mild fronta l parenchymal volume loss. Normal vascular flow voids at the skull base. No extra-axial fluid collect ions. No evidence of mass or mass effect. No hemosiderin on the susceptibility-weighted images. MR/MR head wo con* [id number] IMPRESSION: No evidence of acute ischemia
[2024-03-15] MEDS: cefTRIAXone 1,000 MG in sodium chloride 0.9% (plus) 50 ML 100 MG IV (02:18)
[2024-03-15 02:22] LABS: Chol HDL Ratio 3.46 mg/dL (0.0-4.40); Cholesterol 204 mg/dL (0-200); HDL Cholesterol 59 mg/dL (60-100); LDL Cholesterol Calculated 135 mg/dL (50-129); Thyroid Stimulating Hormone 1.61 uIU/mL (0.27-4.20); Triglycerides 48 mg/dL (0-150); VLDL Cholestrol Calculation 10 mg/dL (0-30)
[2024-03-15 02:24] LABS: Estmated Average Glucose 105; Hemoglobin A1C 5.3 % (4.0-6.0)
[2024-03-15 02:27] LABS: Magnesium 1.9 mg/dL (1.7-2.3)
[2024-03-15] MEDS: sodium chloride 0.9% 1,000 ML 125 ML IV (02:59)
--- NOTE | 2024-03-15 03:40 | ECG_ITS ---
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 Measurements Intervals [place] Rate: 77 P: 83 FL: 163 QRS: -39 QRSD: 89 T: 81 QT: 395 QTc: 449 Interpretive Statements SINUS RHYTHM POSSIBLE LEFT ATRIAL ENLARGEMENT [-0.1mV P-WAVE IN V1/V2] LEFT AXIS DEVIATION [QRS AXIS < -30] POSSIBLE RIGHT VENTRICULAR CONDUCTION DELAY [RSR (QR) IN V1/V2] SEPTAL MYOCARDIAL INFARCTION , OF INDETERMINATE AGE [40+ ms Q WAVE IN V1/V2] No previous ECG available for comparison Electronically Signed On 03-15-2024 18:51:16 CDT by River Ware M.D. [id number]
[2024-03-15] MEDS: heparin 5,000 unit/mL INJ 1 mL 5000 UNIT SUBCUT ×2 (04:00→15:30)
[2024-03-15 06:20] LABS: Troponin 5 6HR 9.66 ng/L (0-10); Troponin 5 6HR Delta 0.66 ng/L (0-12)
[2024-03-15] MEDS: aspirin 81 mg EC Tablet PO (08:15)
[2024-03-15] MEDS: gabapentin 300 mg Capsule PO ×2 (08:15→15:30)
--- NOTE | 2024-03-15 09:50 | PC.CHAP ---
Pastoral Care Encounter/Spiritual Assessment Type of Contact [] Declined data processing manager visit [] Patient/Family/Request visit [] Outpatient visit [] Follow-up visit [] Physician referral [] Code/Alert [x] Routine visit [] Staff referral [] Actively dying [] Patient sleeping [] Family support [] [] Out of room [] Palliative care [] [] Receiving care in room [] Pre-surgical visit [] Trauma [] Long length of stay [] ICU visit [] Other: Relational/Emotional Strength [x] Patient feels connected with others/family/visitors/staff [] Distress [] Loneliness/isolation [] Abandonment Spirituality of Patient [x] Person of Lesley [] Attends Buddhist of their Lesley [x] Believes in Prayer [] Reads Bible or Pentecostal materials [] There are Spiritual issues to be addressed Cardiac Exercise Specialist Interventions [x] Prayer [x] Active listening [] Non-anxious presence [x] Spiritual/emotional support [] Crisis/trauma care [] Spiritual counseling [] Bereavement support [] Provided bereavement packet [] Provided Bible/devotional materials [] Provided toy/stuffed animal, coloring book to patient or family member [] Provided Communion [] Anointing/[place] [] Salvation [x] Completed spiritual assessment [] Other: Impact on Illness or Injury [] Angry [] Fearful [] Anxious [] Often cries [] Exhaustion [] Unable to work [] Unable to attend adventist [] Unable to walk/stand [] Unable to read [] Unable to drive [] Unable to eat/drink [] Unable to sleep [] Unable to be with family [] Patient intubated [] Other: Summary Time spent with patient 5 min
--- NOTE | 2024-03-15 18:35 | P.DS_ITS ---
Discharge Providers Date of Admission: 03/15/24 02:04 Date of Discharge: March 15, 2024 Attending Provider at Admission: Gayle De Luna MD Attending Provider at Discharge: Ac Rodriguez Primary Care Provider: Deb Muñiz MD Diagnoses at Discharge Discharge Diagnosis (1) Brain TIA: Status: Acute (2) Numbness and tingling: Status: Acute (3) Dizziness: Status: Acute (4) Migraine: Status: Acute (5) Headache: Status: Acute Reason for Visit Reason for Visit: Dizziness,Left side Numbness Brief History: Rosey Saravia is a 73 year old female With past medical history of bladder prolapse, chronic back pain,, migraines, chronic headaches who presented to the hospital today for complaint of numbness and tingling in her left hand which later extended up to her shoulder including the bottom left half of her face. She states she woke up around 3:30 AM with a bad headache took Excedrin and went back to bed and got up at 730 and by the time she went to breakfast table she started experiencing dizziness and all of the above symptoms. She stood up and felt dizzy by the time she got to the ER her symptoms resolved however when seen right now she says every time she stands up she feels dizzy and same symptoms start recurring however when she lays down they go away. At times she says she has no symptoms and then she says she might have some. She also states about 5 weeks ago similar episode happened and then she went and saw her chiropractor and by that time symptoms had resolved on their own once again. She has no known history of heart disease diabetes hypertension high cholesterol which she is aware of. She says she has been told that she has a pinched nerve in her neck however has not had any imaging done. At this time she denies nausea vomiting diarrhea abdominal pain chest pain shortness of breath, constipation or any other symptoms. She is still experiencing mild numbness in the bottom left half of her face. Son in law at bedside. Hospital Course Hospital Course Head and neck CTA did not reveal any carotid plaque or stenosis, incidentally noted right TMJ osteoarthritis. C-spine CT did show degenerative disc disease at C5-6, lesser degree C6-7. No spinal canal or neuroforaminal stenosis although limited with noncontrast CT, cervical disc pathology. MRI of the brain did not show any evidence of acute ischemia. Facial numbness resolved. Headache gradually resolved. As needed numbness/tingling in the fingertips. She reports she has had several episodes of this happening when she would experience numbness/tingling in her fingertips, perioral numbness. This was u nilateral yesterday. Additionally blood pressure was quite elevated on presentation. She was subsequently also found to have orthostatic hypotension. Long-term blood pressure control would benefit from improvement. As discussed with her difficult to say that these are not TIA, although some of them are bilateral, this probably would make it less likely. However, with headache, hypertension, certainly could have had hypertensive encephalopathy/urgency. Discussed with her to step up measuring blood pressures to 2-3 times a day, and we are adding lisinopril for time being as needed for blood pressures more than 140/90 given also as discussed with her orthostatic hypotension. Discussed with her orthostatic precautions. Additionally with cardiovascular risks discussed with her discontinuation of hormone therapy as well as avoiding NSAIDs due to increased risk of CVA/AL. Discussed with her additionally starting low-dose aspirin and based on cardiovascular risk factors recommendation for at least moderate statin with initiation of 20 mg atorvastatin, we discussed regarding the found benefits of statin and recommendation, possible risks, although she states might think about the medication and visit again with her primary provider about it. Her A1c was 5.3, without evidence of diabetes. We discussed with her continued optimization of cardiovascular risk factors, healthy diet, exercise, following up with primary provider. Discussed also risks with NSAIDs, avoiding them and possible with increased risk of stroke or CVA. Discussed additionally consideration of possible migraine with aura/hemiplegic migraine, discussed increased risk of stroke with hemiplegic migraine. Discussed follow-up with neurology for additional assessment. NB let her know also her that fesoterodine may be associated with headache. Echocardiogram was performed, returned with normal ejection fraction, please follow-up mild abnormalities with grade 1 diastolic dysfunction, mild mitral regurgitation, mild tricuspid regurgitation. Continue optimization of blood pressure control being mindful of orthostatic propensity/risk. With recurrent episodes with noted hypertension, headache, tingling, anxiety, discussed consideration of further assessment for pheochromocytoma, and catecholamines from plasma and urine are requested. Please follow-up results. Additionally possibly concomitant anxiety and/or panic attack may sometimes cause and/or contribute to similar symptoms as discussed with her. However, she is aware to seek medical attention in case of any could be worrisome for TIA or CVA immediately. UA was repeated, she had recently underwent treatment for urinary tract infection, she does appear to have some residual mild/microscopic hematuria, 5- 10 RBC, 0-4 WBC, 5-10 squamous epithelial cells, 1+ bacteria. She was treated with ceftriaxone in the hospital on admission, as she and her daughter have been concerned about possibly residual UTI she is continued on cefdinir for now. Urine culture is pending, please follow-up. We discussed with her that microscopic hematuria will need follow-up for resolution. Please reassess to confirm resolution after treatment of UTI or ot herwise please seek additional assessment for possible causes, possibly nephrolithiasis and/or excluding malignancy. Physical Exam Const: COMMON NORMALS: patient oriented x3 and alert GENERAL APPEARANCE: cooperative ORIENTATION/CONSCIOUSNESS: Yes awake HENMT: COMMON NORMALS: oropharynx normal Neck/C-Spine: COMMON NORMALS: no JVD Resp: COMMON NORMALS: normal respiratory effort and clear to auscultation bilaterally AUSCULTATION: clear to auscultation bilaterally Cardio: COMMON NORMALS: no JVD, regular rhythm, S1 normal heart sound present, S2 normal heart sound present and No murmurs present (Cardio) RHYTHM: regular rhythm HEART SOUNDS: S1 normal heart sound present and S2 normal heart sound present GI: COMMON NORMALS: Normal to inspection, nondistended, normoactive bowel sounds present, Soft to palpation and non-tender PALPATION: Yes Soft to palpation Extremity: COMMON NORMALS: no joint enlargement and no pedal edema Neuro: COMMON NORMALS: patient oriented x3 and moves all extremities SENSORIUM/ORIENTATION: Yes alert Skin: COMMON NORMALS: no rashes or lesions noted GENERAL SKIN EXAM: no rashes or lesions noted Discharge Data Studies Completed and Pending Completed Studies During Hospitalization Category Date Time Status CT cervical spin wo con* [id number] Stat Cat Scan 03/15/24 00:[address] head wo con* [id number] Stat Cat Scan 03/14/24 21:40 Completed CTA head neck [CT angio headneck* [id number]] Stat Cat Scan 03/15/24 00:47 Completed XR chest 1V portable [id number] Stat Exams 03/14/24 21:40 Completed MR head wo con* [id number] Urgent MRI 03/15/24 01:54 Completed US echo complete [CV. echo complete* [id number]] Routine Ultrasound 03/15/24 01:52 Completed Pending at discharge Category Date Time Status Basic Metabolic Panel AM LABS Lab 03/16/24 04:00 Ordered Catecholamines Frac,Urine [place] Routine Lab 03/15/24 12:13 Ordered Complete Blood Count w/Auto AM LABS Lab 03/16/24 04:00 Ordered Plasma Metanephrines [Metanephrines, Fract Plasma] Lab 03/15/24 14:56 Received Routine Urine Culture Stat Lab 03/15/24 01:56 Received Radiology Impressions Chest X-Ray 03/14/24 21:40 IMPRESSION: No acute cardiopulmonary abnormality. Head CT 03/14/24 21:40 IMPRESSION: No evidence of acute intracranial hemorrhage, mass effect, or edema. Cervical Spine CT 03/15/24 00:47 IMPRESSION: Advanced degenerative disc disease at C5-C6 and to a lesser degree at C6-C7. No spinal canal or neural foraminal stenosis appreciated, but there is limited CT sensitivity for soft disc pathology. Consideration could be given to MR for further investigation. Head/Neck CTA 03/15/24 00:47 IMPRESSION: No evidence of acute large vessel occlusion, vascular malformation, aneurysm, or significant intracranial atherosclerosis. Posteroinferior cerebellar arteries appear normal bilaterally. Normal symmetric internal auditory canals. IMPRESSION: 1. There is no visible plaque at either carotid bifurcation. Widely patent carotid and vertebral arteries in the neck. 2. Right TMJ osteoarthritis. REFERENCES: NASCET CRITERIA. The degree of stenosis in the cervical segment of the internal carotid artery is based on NASCET criteria. Normal is no stenosis. Mild is less than 50% stenosis. Moderate is 50-69% stenosis. Severe is 70% to 99% stenosis. Total occlusion is no detectable patent lumen. Head MRI 03/15/24 01:54 IMPRESSION: No evidence of acute ischemia Laboratory Results WBC 6.88 10^3/uL (3.29-11.43) 03/14/24 22:14 RBC 4.68 10^6/uL (3.85-5.65) 03/14/24 22:14 Hgb 14.40 g/dL (11.27-16.99) 03/14/24 22:14 Hct 43.6 % (36-47) 03/14/24 22:14 MCV 93.2 fl (85-98) 03/14/24 22:14 MCH 30.8 pg (27-33) 03/14/24 22:14 MCHC 33.0 g/dL (30-55) 03/14/24 22:14 RDW 13.2 % (12.1-15.1) 03/14/24 22:14 Plt Count 237 10^3/cmm (157-399) 03/14/24 22:14 MPV 10.9 fL (7.4-10.4) H 03/14/24 22:14 Neut % (Auto) 62.1 % 03/14/24 22:14 Lymph % (Auto) 26.3 % 03/14/24 22:14 [place] % (Auto) 9.3 % 03/14/24 22:14 Eos % (Auto) 1.6 % 03/14/24 22:14 Baso % (Auto) 0.6 % 03/14/24 22:14 Neut # (Auto) 4.27 10^3/uL (1.8-7.7) 03/14/24 22:14 Lymph # (Auto) 1.8 10^3/uL (0.8-4.8) 03/14/24 22:14 [place] # (Auto) 0.6 10^3/uL (0.2-0.9) 03/14/24 22:14 Eos # (Auto) 0.1 10^3/uL (0.0-0.8) 03/14/24 22:14 Baso # (Auto) 0.0 10^3/uL (0.0-0.1) 03/14/24 22:14 Nucleated RBC % (auto) 0 % 03/14/24 22:14 Nucleated RBCs # 0.0 /100WBC 03/14/24 22:14 PT 14.20 SECONDS (12.1-14.9) 03/14/24 22:14 INR 1.06 (0.8-1.2) 03/14/24 22:14 Sodium 136 mmol/L (136-145) 03/14/24 22:14 Potassium 3.4 mmol/L (3.5-5.1) L 03/14/24 22:14 Chloride 97 mmol/L (98-107) L 03/14/24 22:14 Carbon Dioxide 26 mmol/L (22-29) 03/14/24 22:14 Anion Gap 16.4 (5-19) 03/14/24 22:14 BUN 16 mg/dL (8-23) 03/14/24 22:14 Creatinine 1.0 mg/dL (0.5-0.9) H 03/14/24 22:14 GFR Calculation Not Reportable 03/14/24 22:14 Glucose 115 mg/dL (65-115) 03/14/24 22:14 Estimat Average Glucose 105 03/14/24 22:14 Hemoglobin A1c 5.3 % (4.0-6.0) 03/14/24 22:14 Calculated Osmolality 284 mOsm/kg (285-295) L 03/14/24 22:14 Calcium 9.3 mg/dL (8.5-10.5) 03/14/24 22:14 Magnesium 1.9 mg/dL (1.7-2.3) 03/15/24 00:19 Total Bilirubin 0.5 mg/dL (0.15-1.2) 03/14/24 22:14 AST 18 U/L (0-32) 03/14/24 22:14 ALT 11 U/L (0-33) 03/14/24 22:14 Alkaline Phosphatase 58 U/L (35-105) 03/14/24 22:14 Troponin T Baseline 9 ng/L (0-10) 03/14/24 22:14 Troponin T 120 Minute 10.35 ng/L (0-10) H 03/15/24 00:19 Delta Troponin T 1.35 ABS# (0-10) 03/15/24 00:19 Troponin T Hi Sens 6Hr 9.66 ng/L (0-10) 03/15/24 05:00 Troponin T Hi Sens 6Hr Delta 0.66 ng/L (0-12) 03/15/24 05:00 C-Reactive Protein 3.1 mg/L (0.0-4.9) 03/14/24 22:14 Total Protein 7.0 g/dL (6.6-8.7) 03/14/24 22:14 Albumin 3.9 g/dL (3.5-5.2) 03/14/24 22:14 Globulin 3.1 g/dL (1.3-4.6) 03/14/24 22:14 Triglycerides 48 mg/dL (0-150) 03/15/24 00:19 Cholesterol 204 mg/dL (0-200) H 03/15/24 00:19 LDL Cholesterol, Calc 135 mg/dL (50-129) H 03/15/24 00:19 Total VLDL Cholesterol 10 mg/dL (0-30) 03/15/24 00:19 HDL Cholesterol 59 mg/dL (60-100) L 03/15/24 00:19 Cholesterol/HDL Ratio 3.46 mg/dL (0.0-4.40) 03/15/24 00:19 TSH 1.61 uIU/mL (0.27-4.20) 03/15/24 00:19 Urine Color Yellow (Yellow) 03/14/24 23:13 Urine Appearance Clear (CLEAR) 03/14/24 23:13 Urine pH 8 (5-7) H 03/14/24 23:13 Ur Specific [place] 1.015 (1.005-1.030) 03/14/24 23:13 Urine Protein Neg (Negative) 03/14/24 23:13 Urine Glucose (UA) Norm (Normal) 03/14/24 23:13 Urine Ketones 1+ (Negative) H 03/14/24 23:13 Urine Blood 2+ (Negative) H 03/14/24 23:13 Urine Nitrate Negative (Negative) 03/14/24 23:13 Urine Bilirubin Neg (Negative) 03/14/24 23:13 Urine Urobilinogen Neg mg/dL (Negative) 03/14/24 23:13 Ur Leukocyte Esterase Negative (Negative) 03/14/24 23:13 Urine RBC 5-10 /hpf (0-2) H 03/14/24 23:13 Urine WBC 0-4 /hpf (0-5) H 03/14/24 23:13 Ur Squamous Epith Cells 5-10 /hpf (0-5) H 03/14/24 23:13 Amorphous Sediment 1+ /hpf 03/14/24 23:13 Urine Bacteria 1+ /hpf (NONE) H 03/14/24 23:13 Urine Mucus Trace /hpf 03/14/24 23:13 Vitals Last Vital Signs Temp 97.8 F 03/15/24 18:11 Pulse 84 03/15/24 18:11 Resp 15 03/15/24 18:11 BP 138/83 03/15/24 18:11 Pulse Ox 92 03/15/24 18:11 O2 Del Method Room Air 03/15/24 15:22 Discharge Plan Discharge Patient Disposition: Home Condition: Stable Prescriptions: New lisinopril 5 mg tablet 5 mg PO DAILY PRN (Reason: blood pressure) Qty: 30 0RF Rx Instructions: Systolic blood pressure over 140 or diastolic pressure over 90 atorvastatin 20 mg tablet 20 mg PO DAILY Qty: 90 0RF aspirin 81 mg tablet,delayed release (DR/EC) 81 mg PO DAILY Qty: 90 0RF cefdinir 300 mg capsule 300 mg PO BID 5 Days Qty: 10 0RF Continued Toviaz 8 mg tablet extended release 24 hr 8 mg PO DAILY baclofen 10 mg tablet 10 mg PO BID PRN (Reason: spasm) Qty: 60 2RF propranolol 40 mg tablet 20 mg PO BID Qty: 90 6RF gabapentin 300 mg capsule 300 mg PO TID Qty: 90 3RF Discontinued estrogens-methyltestosterone 1.25-2.5 mg tablet 1 tab PO DAILY ibuprofen 200 mg Tablet 200 mg PO Q6H PRN (Reason: Pain) Discharge Orders: Discharge Order (Routine); Ordered 03/15/24 Ordered By: Ac Rodriguez Referrals: [facility] [Provider Group] - 7-10 days (TIA versus hypertensive encephalopathy, versus hemiplegic migraine We have notified your physician's clinic of the need for a follow-up appointment to be scheduled. If you have not heard from them within the next 2 business days, please call them directly. ) Deb Muñiz MD [Primary Care Provider] - 4-7 days (We have notified your physician's clinic of the need for a follow-up appointment to be scheduled. If you have not heard from them within the next 2 business days, please call them directly. ) Discharge Diet: Cardiac Discharge Activity: Increase activity as tolerated and Limit activity as instructed Patient Instructions: Lisinopril (By mouth), Cefdinir (By mouth), Hematuria - Female, Migraine Headache (GEN), Hypotension (GEN), Hypertension (GEN) Activity Restrictions/Additional Instructions: Please discontinue ibuprofen and avoid NSAIDs which can contribute to hypertension and increase risk of stroke or heart attack. Please also consider regarding increasing risk of stroke with hormone treatments. Follow-up with your primary doctor for reassessment after episode of elevated blood pressure, numbness around your mouth, hand/fingertips. Discuss consideration of hypertensive urgency, possibly hypertensive encephalopathy. However, please also discuss regarding orthostatic hypotension. Management of blood pressure may be made challenging due to blood pressure decreasing when you are standing or walking. Trying to manage orthostatic hypotension can further increase your blood pressure when you are lying down. We discussed regarding adding lisinopril to your blood pressure regimen to be taken on as-needed basis in case blood pressure is elevated. Please monitor blood pressure 3 times daily. Take lisinopril in case her blood pressure is going above 140 top number or 90 bottom number. To reduce the chance of blood pressure dropping down when you are standing, stay well-hydrated, wear compression stockings, as discussed always rise slowly from laying to sitting and sitting to standing to allow your body to catch up. Sit down or lie down immediately in case of feeling lightheaded or like you are going to faint. Please also follow-up with your primary doctor regarding catecholamine testing, consideration of pheochromocytoma. Please follow-up with your primary doctor also regarding osteoarthritis in C5-6, possibly causing nerve impingement, consider referral for additional assessment by MRI. Please follow-up and discuss with your primary doctor regarding the recent urinary tract infection, blood in your urine, and discuss referral for additional assessment for any residual kidney stones, pursuing other investigation for small amount of blood in your urine. In case of any recurrence of any concerning symptoms, just as you did, seek medical attention for assessment for possible stroke. Follow-up with your primary doctor regarding migraines, hemiplegic migraines may increase your risk of stroke. Discharge Attestations Time Spent in Discharge Care*: greater than 30 min Quality Metrics Clinical Quality Measures [ No reported AMI, CVA or VTE this stay] Coding Level of Care Code 01337 Total time (in minutes) for Discharge: 65 Diagnoses Brain TIA G45.9 Numbness and tingling R20.0; R20.2 Dizziness R42 Migraine G43.909 Headache R51.9
[2024-03-20 14:35] LABS: Metanephrine Total Free 83 pg/mL (<=205)
== END 2024-03-15 19:05 | disposition home or self-care (01) ==
LOC: ER 03-15 01:51 → MEDSURG 03-15 02:05
PROVIDERS: Admitting Provider Internal Medicine; Emergency Provider Emergency Medicine; PCP Family Medicine; Visit Provider Internal Medicine
DX: G45.9 Transient cerebral ischemic attack, unspecified (principal); R20.0 Anesthesia of skin; R20.2 Paresthesia of skin; R42 Dizziness and giddiness; G43.909 Migraine, unspecified, not intractable, without status migrainosus; I10 Essential (primary) hypertension
CPT/HCPCS: 36415; 70450; 70496; 70498; 70551; 71045; 72125; 80053; 80061; 81001; 83036; 83735; 83835; 84443; 84484; 85025; 85610; 86140; 87086; 93005; 93306; 96365; 96372; 97161; 97165; 99285; G0378; J0696; J1644; J7030; Q9967

== ENCOUNTER → 2024-03-26 14:49 | Outpatient (BNVA) | payer MEDICARE, BC, SELFPAY | PROVIDERS: PCP Family Medicine; Visit Provider Family Medicine | DX: R30.0 Dysuria (principal) | CPT/HCPCS: 81000; 81003 ==

== ENCOUNTER → 2024-04-02 10:46 | Outpatient (BNVA) | payer MEDICARE, BC, SELFPAY | PROVIDERS: PCP Family Medicine; Visit Provider Psychiatry & Neurology Neurology | DX: G45.1 Carotid artery syndrome (hemispheric) (principal); I49.9 Cardiac arrhythmia, unspecified; E53.1 Pyridoxine deficiency; G45.9 Transient cerebral ischemic attack, unspecified; I25.10 Atherosclerotic heart disease of native coronary artery without angina pectoris | CPT/HCPCS: 36415; 81241; 83090; 85210; 85613; 85730; 86146; 86147; 99203 ==

== ENCOUNTER → 2024-07-16 13:31 | Outpatient (BNVA) | payer MEDICARE, BC, SELFPAY | PROVIDERS: PCP Family Medicine; Visit Provider Internal Medicine Cardiovascular Disease | DX: R07.9 Chest pain, unspecified (principal) | CPT/HCPCS: 93005 ==

== ENCOUNTER → 2024-07-29 14:19 | Outpatient (BNVA) | payer MEDICARE, BC, SELFPAY | PROVIDERS: PCP Nurse Practitioner Family; Visit Provider Nurse Practitioner Family | DX: R05.9 Cough, unspecified (principal); M41.85 Other forms of scoliosis, thoracolumbar region | CPT/HCPCS: 71046 ==

== ENCOUNTER → 2024-09-18 11:06 | Outpatient (BNVA) | payer MEDICARE, BC, SELFPAY | PROVIDERS: PCP Nurse Practitioner Family; Visit Provider Anesthesiology Pain Medicine | DX: M47.816 Spondylosis without myelopathy or radiculopathy, lumbar region (principal); M54.2 Cervicalgia; M25.552 Pain in left hip; G89.29 Other chronic pain; M54.9 Dorsalgia, unspecified | CPT/HCPCS: 73502; 99214 ==

== ENCOUNTER → 2024-09-24 13:52 | Outpatient (BNVA) | payer MEDICARE, BC, SELFPAY | PROVIDERS: PCP Nurse Practitioner Family; Visit Provider Psychiatry & Neurology Neurology | DX: G45.1 Carotid artery syndrome (hemispheric) (principal); I99.8 Other disorder of circulatory system | CPT/HCPCS: 20553; 99212; 99214; J1010; J3490 ==

== ENCOUNTER → 2024-10-01 14:43 | Outpatient (BNVA) | payer BC, MEDICARE, SELFPAY | PROVIDERS: PCP Nurse Practitioner Family; Visit Provider Internal Medicine Cardiovascular Disease | DX: I10 Essential (primary) hypertension (principal); I49.8 Other specified cardiac arrhythmias | CPT/HCPCS: 80048 ==

== ENCOUNTER → 2024-12-05 12:40 | Outpatient (BNVA) | payer MEDICARE, BC, SELFPAY | PROVIDERS: PCP Nurse Practitioner Family; Visit Provider Internal Medicine Cardiovascular Disease | DX: I10 Essential (primary) hypertension (principal); R00.2 Palpitations; R60.9 Edema, unspecified | CPT/HCPCS: 99204 ==

== ENCOUNTER 2024-12-23 06:00 | Outpatient (CLI) | payer MEDICARE, BC, SELFPAY | END 2024-12-23 06:01 | disposition home or self-care (01) | LOC: RAD 12-24 08:07 | PROVIDERS: PCP Nurse Practitioner Family; Visit Provider Nurse Practitioner Family | DX: M54.2 Cervicalgia (principal); M54.9 Dorsalgia, unspecified; G89.29 Other chronic pain; M47.816 Spondylosis without myelopathy or radiculopathy, lumbar region | CPT/HCPCS: 99213 ==

== ENCOUNTER → 2025-02-12 15:55 | Outpatient (BNVA) | payer MEDICARE, BC, SELFPAY | PROVIDERS: PCP Nurse Practitioner Family; Visit Provider Psychiatry & Neurology Neurology | DX: G45.1 Carotid artery syndrome (hemispheric) (principal); M54.10 Radiculopathy, site unspecified; I99.8 Other disorder of circulatory system | CPT/HCPCS: 99212 ==

== ENCOUNTER 2025-02-18 12:39 | Outpatient (CLI) | payer MEDICARE, BC, SELFPAY ==
--- NOTE | 2025-02-18 13:00 | MR_ITS ---
WS: [id number] MRI HEAD WITH CONTRAST TECHNIQUE: Sagittal T1, T2 axial, T2 axial FLAIR, axial susceptibility weighted imaging, axial diffusion weighted images, and coronal T2 images were obtained. Pre and post-T1 axial and post T1 coronal images. ADC and FSPGR images. CLINICAL INFORMATION: G45.1 - Carotid artery syndrome (hemispheric) COMPARISON: MRI 2023 FINDINGS: No evidence of restricted diffusion to suggest acute ischemia. Ventricular system and basilar cisterns are patent. Moderate patchy small vessel changes similar to previous. Moderate parenchymal volume loss. Normal posterior fossa. RIGHT ICA flow void at the skull base somewhat smaller compared to the LEFT although unchanged since the prior CTA 03/15/2024. This can be followed up with CTA. No extra-axial fluid collections. Paranasal sinuses and mastoid air cells are well aerated. Normal optic chiasm and pituitary infundibulum. Temporal lobes hippocampal formations are normal in appearance. No hemosiderin. No abnormal gadolinium enhancement. MR/MR head wo/w con [id number] IMPRESSION: 1. No evidence of restricted diffusion to suggest acute ischemia. 2. Moderate small vessel changes with moderate parenchymal volume loss stable compared to previous. 3. No hemosiderin on the susceptibly weighted images. 4. No abnormal gadolinium enhancement. 5. RIGHT ICA flow void involving the petrous and proximal cavernous segments s omewhat diminutive compared to the LEFT although appears patent and unchanged s prema the prior CTA 03/15/2024. This may be incidental but can be followed up with CTA to assess stability.
--- NOTE | 2025-02-18 13:45 | MR_ITS ---
WS: [email or web address] MRI LUMBAR SPINE WITH CONTRAST TECHNIQUE: Sagittal T1, T2 and STIR imaging. Axial T1 and T2 imaging. Post gadolinium imaging was obtained. CLINICAL INFORMATION: M54.10 - Radiculopathy, site unspecified COMPARISON: MRI 2020 FINDINGS: Mild lumbar curve. No acute compression. No high-grade central canal stenosis. Mild central canal stenosis in the cervical spine on the cop breaker imaging at C5-6. No abnormal gadolinium enhancement. L1-L2: Normal. L2-L3: Mild disc bulging. Narrowing of the RIGHT subarticular recess. Moderate facet arthropathy. L3-L4: Mild disc bulging. Impingement of the RIGHT subarticular recess. Mild RIGHT foraminal narrowing. Moderate facet arthropathy. L4-L5: Mild annular bulging. Impingement on the LEFT greater than RIGHT subarticular recess. Mild bilateral foraminal narrowing. Moderate facet arthropathy. L5-S1: Mild disc bulging. Slight effacement of the ventral thecal sac. Mild LEFT bony foraminal narrowing. Visualized pelvic bony structures: Normal. Paravertebral soft tissues: Normal. LEFT renal cyst. MR/MR lumbar spine wo/w con [id number] IMPRESSION: 1. Lumbar scoliosis. No acute compression fractures. 2. No high-grade central canal stenosis. 3. Mild annular bulging L2-3 with impingement on the RIGHT subarticular recess . 4. Annular bulging L3-4 impinges the RIGHT subarticular recess with mild RIGHT foraminal narrowing. 5. Mild bilateral L4-5 foraminal narrowing. 6. Mild LEFT L5-S1 foraminal narrowing. 7. Moderate facet arthropathy L3-L5. 8. No abnormal gadolinium enhancement.
[2025-02-18] MEDS: gadobenate dimeglumine 20 mL vial IV (14:21)
== END 2025-02-18 12:40 | disposition home or self-care (01) ==
PROVIDERS: PCP Nurse Practitioner Family; Visit Provider Psychiatry & Neurology Neurology
DX: G45.1 Carotid artery syndrome (hemispheric) (principal); M54.10 Radiculopathy, site unspecified; R93.0 Abnormal findings on diagnostic imaging of skull and head, not elsewhere classified; M41.86 Other forms of scoliosis, lumbar region; M51.369 Other intervertebral disc degeneration, lumbar region without mention of lumbar back pain or lower extremity pain; M48.061 Spinal stenosis, lumbar region without neurogenic claudication; M47.896 Other spondylosis, lumbar region; M48.02 Spinal stenosis, cervical region; M51.379 Other intervertebral disc degeneration, lumbosacral region without mention of lumbar back pain or lower extremity pain; M48.07 Spinal stenosis, lumbosacral region; N28.1 Cyst of kidney, acquired
CPT/HCPCS: 70553; 72158

== ENCOUNTER 2025-02-25 10:52 | Outpatient (CLI) | payer MEDICARE, BC, SELFPAY ==
--- NOTE | 2025-02-25 11:00 | MR_ITS ---
WS: [email or web address] MRA CAROTID ARTERIES HISTORY: G45.1 - Carotid artery syndrome (hemispheric) COMPARISON: CT angiogram 03/15/2024 TECHNIQUE: MRA is performed with intravenous gadolinium. MIP and source images are reviewed. Right: Normal cervical carotid artery. No stenosis at the bifurcation. Left: Normal cervical carotid artery. No stenosis at the bifurcation. Subclavian Arteries: Normal. No high-grade stenosis. Vertebral Arteries: No stenosis or dissection. Codominant vertebral arteries. MR/MR angio neck w con* [id number] IMPRESSION: No significant cervical carotid artery stenosis. Normal vertebral arteries.
--- NOTE | 2025-02-25 11:45 | MR_ITS ---
WS: [email or web address] MRA ANGIOGRAPHY [place] OF [place] HISTORY: G45.1 - Carotid artery syndrome (hemispheric) COMPARISON: CT angiogram 03/15/2024 TECHNIQUE: 3-D MR angiography is performed of the the [place]. All images are reviewed including source images. Distal vertebral and basilar arteries are intact with no significant stenosis or plaque. Posterior cerebral arteries are normal course and caliber. Posterior communicating arteries are both patent. Small caliber and irregular RIGHT petrous and cavernous segment of the carotid artery as previously described. Carotid artery is patent. No aneurysm. Normal LEFT intracranial carotid artery. Middle and anterior cerebral arteries are well opacified. No aneurysms. Mildly hypoplastic RIGHT A1 segment. MR/MR angio head wo con [id number] IMPRESSION: 1. The identified is small caliber RIGHT ICA involving the petrous and caverno us segments. Artery is patent. No aneurysm. 2. Hypoplastic RIGHT A1 segment. 3. No aneurysms.
[2025-02-25] MEDS: gadobenate dimeglumine 20 mL vial IV (11:56)
== END 2025-02-25 10:53 | disposition home or self-care (01) ==
LOC: RAD 10:54
PROVIDERS: PCP Nurse Practitioner Family; Visit Provider Psychiatry & Neurology Neurology
DX: I65.21 Occlusion and stenosis of right carotid artery (principal); Q28.1 Other malformations of precerebral vessels; M54.16 Radiculopathy, lumbar region; M46.96 Unspecified inflammatory spondylopathy, lumbar region
CPT/HCPCS: 70544; 70548; 72110; 99213

== ENCOUNTER → 2025-07-07 08:19 | Outpatient (BNVA) | payer MEDICARE, BC, SELFPAY | PROVIDERS: PCP Nurse Practitioner Family; Visit Provider Anesthesiology Pain Medicine | DX: M47.816 Spondylosis without myelopathy or radiculopathy, lumbar region (principal); M62.838 Other muscle spasm; G89.29 Other chronic pain; M54.2 Cervicalgia | CPT/HCPCS: 99214 ==

== ENCOUNTER → 2025-07-24 12:06 | Outpatient (BNVA) | payer MEDICARE, BC, SELFPAY | PROVIDERS: PCP Nurse Practitioner Family; Visit Provider Nurse Practitioner Family | DX: R05.8 Other specified cough (principal); R09.89 Other specified symptoms and signs involving the circulatory and respiratory systems | CPT/HCPCS: 71046; 80053; 85025 ==

== ENCOUNTER 2025-08-29 09:48 | Outpatient (CLI) | payer MEDICARE, BC, SELFPAY ==
--- NOTE | 2025-08-29 09:53 | FL_ITS ---
WS: [email or web address] Barium swallow and esophagram, 08/29/2025 Clinical Data: DYSPHAGIA Comparison: None. Fluoroscopy time: 1min [id number] # of spot films: 37 Findings: The patient swallowed the thick and thin barium, and it flowed through the hypopharynx without hesitation. No stricture, mass, polyp or erosion was seen. There is no aspiration or penetration. There was osteoarthritis of the C5-C7 vertebral bodies which impinged onto the posterior hypopharynx. The barium entered the esophagus and there was poor motility throughout. No reflux, stricture, polyp, mass, erosion or ulcer was noted. There was a small sliding hiatal hernia but no reflux was seen. The barium passed normally into the stomach. MT/MT barium swallow [id number] Impression: 1. Impingement on the posterior hypopharynx by osteoarthritis C5-C7. 2. Poor motility of the entire esophagus. 3. Small hiatal hernia.
== END 2025-08-29 09:49 | disposition home or self-care (01) ==
LOC: RAD 09:50
PROVIDERS: PCP Nurse Practitioner Family; Visit Provider Otolaryngology
DX: R13.10 Dysphagia, unspecified (principal); M47.812 Spondylosis without myelopathy or radiculopathy, cervical region; K44.9 Diaphragmatic hernia without obstruction or gangrene
CPT/HCPCS: 74220